=== PATIENT | female | born 1990 | race Caucasian/White ===

== ENCOUNTER 2023-07-24 11:33 | Emergency (ER) | payer BC ==
[~2023-07-24] VITALS: Ht 162.6 cm; Wt 99.5 kg
[2023-07-24 11:38] VITALS: BP 191/101; PULSE 78; RESP 16; TEMP 98; O2SAT 99
[2023-07-24] MEDS ORDERED: IBUP-1986 PO (12:45)
== END 2023-07-24 13:21 | disposition home or self-care (01) ==
LOC: ER 11:35
DX: S62.635B Displaced fracture of distal phalanx of left ring finger, initial encounter for open fracture (principal); Z79.899 Other long term (current) drug therapy; W23.0XXA Caught, crushed, jammed, or pinched between moving objects, initial encounter; Y93.89 Activity, other specified; Y92.89 Other specified places as the place of occurrence of the external cause; Y99.8 Other external cause status
CPT/HCPCS: 29130; 73130; 99283